=== PATIENT | female | born 1985 | race Caucasian/White ===

== ENCOUNTER 2017-10-03 04:48 | Inpatient (IN) | payer SELFPAY ==
[~2017-10-03] VITALS: Ht 149.9 cm; Wt 83.5 kg
[2017-10-03] MEDS: LACTATED RINGERS 1,000 ML IV SCH ×2 (05:52→06:53)
[2017-10-03] MEDS ORDERED: FERR325E14 PO (06:27)
[2017-10-03] MEDS ORDERED: PREN-546 PO (06:27)
--- NOTE | 2017-10-03 06:30 | NUR ---
PATIENT HAS BEEN SCREENED AND CATEGORIZED LOW NUTRITION RISK. PATIENT WILL BE SEEN WITHIN 7 DAYS OF ADMISSION. 10/09/17 LISA HUTSON MS, RDN
[2017-10-03 06:32] VITALS: BP 115/69
[2017-10-03 06:46] LABS: BASOPHILS # (AUTO) 0.2 K/uL (0.00-0.22); BASOPHILS % (AUTO) 1.4 % (0.0-2.0); EOSINOPHILS # (AUTO) 0.1 K/uL (0-0.4); EOSINOPHILS % (AUTO) 0.6 % (0.0-4.0); HEMATOCRIT 33.8 % (36-48); HEMOGLOBIN 11.2 g/dL (12.0-16.0); LYMPHOCYTES # (AUTO) 2.2 K/uL (2.5-16.5); LYMPHOCYTES % (AUTO) 17.9 % (20.5-51.1); MEAN CORPUSCULAR HEMOGLOBIN 29 pg (27-31); MEAN CORPUSCULAR HGB CONC 33 g/dL (33-37); MEAN CORPUSCULAR VOLUME 88 fL (80-94); MONOCYTES # (AUTO) 0.9 K/uL (0.8-1.0); MONOCYTES % (AUTO) 7.4 % (1.7-9.3); NEUTROPHILS % (AUTO) 72.7 % (42.2-75.2); PLATELET COUNT (AUTO) 305 K/uL (140-450); RED BLOOD CELL COUNT(AUTO) 3.86 MIL/uL (4.20-5.40); RED CELL DISTRIBUTION WIDTH 14.3 % (11.6-13.7); WHITE BLOOD COUNT (AUTO) 12.4 K/uL (4.8-10.8)
[2017-10-03] MEDS ORDERED: CLINDAMYCIN 900 MG in DEXTROSE 5% 100 ML IV ONE (07:00)
[2017-10-03] MEDS ORDERED: OXYTOCIN 10 UNITS/ML VIAL ONE (07:10)
[2017-10-03] MEDS ORDERED: diphenhydrAMINE 50 MG/ML VIAL ONE (07:17)
[2017-10-03] MEDS ORDERED: OXYTOCIN 20 UNITS/LR PREMIX 1,000 ML IV ONE (07:17)
[2017-10-03] MEDS ORDERED: ePHEDrine 50 MG/ML VIAL ONE (07:20)
[2017-10-03] MEDS ORDERED: CLINDAMYCIN 900 MG/6 ML VIAL IV ONE ×2 (07:20→07:27)
[2017-10-03] MEDS ORDERED: fentaNYL 0.05 MG/ML VIAL ONE (07:30)
[2017-10-03] MEDS ORDERED: MORPHINE PRES FREE 10 MG/10 ML AMP IV ONE (07:30)
[2017-10-03 07:42] LABS: BILIRUBIN,URINE NEGATIVE (NEGATIVE); BLOOD, URINE NEGATIVE (NEGATIVE); COLOR,URINE YELLOW (YELLOW); LEUKOCYTE ESTERASE ,URINE NEGATIVE (NEGATIVE); NITRITE, URINE NEGATIVE (NEGATIVE); UGLUCOSE NEGATIVE (NEGATIVE)
[2017-10-03] MEDS ORDERED: NALOXONE 0.4 MG/ML VIAL IVP PRN ×3 (07:55)
[2017-10-03] MEDS ORDERED: diphenhydrAMINE 50 MG/ML VIAL IVP PRN (07:55)
[2017-10-03] MEDS ORDERED: NALBUPHINE 10 MG/ML AMP IVP PRN (07:55)
[2017-10-03] MEDS ORDERED: ONDANSETRON 4 MG/2 ML VIAL IVP PRN ×2 (07:55)
[2017-10-03] MEDS ORDERED: KETOROLAC 60 MG/2 ML VIAL IM PRN (07:55)
[2017-10-03] MEDS ORDERED: MEASLES, MUMPS, AND RUBELLA 1 VIAL SQVAC PRN (08:10)
[2017-10-03] MEDS ORDERED: SIMETHICONE 80 MG TAB.CHEW PO PRN (08:10)
[2017-10-03] MEDS ORDERED: oxyCODONE/APAP 5/325 MG 1 TAB TAB PO PRN (08:10)
[2017-10-03] MEDS ORDERED: METHYLERGONOVINE 0.2 MG/ML AMP IM PRN (08:10)
[2017-10-03] MEDS ORDERED: TEMAZEPAM 15 MG CAP PO PRN (08:10)
[2017-10-03] MEDS ORDERED: IBUPROFEN 800 MG TAB PO PRN (08:10)
[2017-10-03] MEDS ORDERED: TRIMETHOBENZAMIDE 200 MG/2 ML SYR IM PRN (08:10)
[2017-10-03] MEDS ORDERED: ONDANSETRON 4 MG/2 ML VIAL ONE (08:21)
[2017-10-03 08:29] LABS: APPEARANCE,URINE HAZY (CLEAR); RBC,URINE 0-5 (RARE) /HPF (0-5); WBC,URINE 0-5 (RARE) /HPF (0-5)
[2017-10-03] MEDS: OXYTOCIN 20 UNITS in LACTATED RINGERS 1,000 ML IV SCH ×2 (15:28→23:23)
--- NOTE | 2017-10-03 15:55 | NUR ---
TOLERATED INCENTIVE SPIROMETRY THERAPY WELL WITHOUT ADVERSE REACTIONS NOTED ENCOURAGED PATIENT WITH ACKNOWLEDGEMENT TO USE EVERY 1-2 HOURS WHILE AWAKE
[2017-10-03] MEDS ORDERED: DOCUSATE SOD/SENNA 50/8.6 MG 1 TAB PO SCH (21:00)
[2017-10-04] MEDS ORDERED: OXYTOCIN 20 UNITS/LR PREMIX 1,000 ML IV ONE (06:30)
[2017-10-04] MEDS: OXYTOCIN 20 UNITS in LACTATED RINGERS 1,000 ML IV SCH (06:38)
[2017-10-04 06:45] LABS: BASOPHILS # (AUTO) 0.1 K/uL (0.00-0.22); BASOPHILS % (AUTO) 0.6 % (0.0-2.0); EOSINOPHILS # (AUTO) 0.1 K/uL (0-0.4); EOSINOPHILS % (AUTO) 0.6 % (0.0-4.0); HEMATOCRIT 30.8 % (36-48); HEMOGLOBIN 10.8 g/dL (12.0-16.0); LYMPHOCYTES % (AUTO) 13.7 % (20.5-51.1); MEAN CORPUSCULAR HEMOGLOBIN 31 pg (27-31); MEAN CORPUSCULAR HGB CONC 35 g/dL (33-37); MEAN CORPUSCULAR VOLUME 89 fL (80-94); MONOCYTES % (AUTO) 6.9 % (1.7-9.3); NEUTROPHILS # (AUTO) 11.2 K/uL (1.8-7.7); NEUTROPHILS % (AUTO) 78.2 % (42.2-75.2); PLATELET COUNT (AUTO) 296 K/uL (140-450); RED BLOOD CELL COUNT(AUTO) 3.45 MIL/uL (4.20-5.40); RED CELL DISTRIBUTION WIDTH 14.3 % (11.6-13.7); WHITE BLOOD COUNT (AUTO) 14.4 K/uL (4.8-10.8)
[2017-10-04] MEDS: HYDROcodone/APAP 5/325 MG 1 TAB TAB PO PRN (22:03)
[2017-10-05] MEDS: HYDROcodone/APAP 5/325 MG 1 TAB TAB PO PRN (06:16)
[2017-10-05] MEDS ORDERED: IBUP-2218 PO (08:31)
[2017-10-05] MEDS ORDERED: SODIUM PHOSPHATE 118 ML ENEM RC PRN (09:50)
== END 2017-10-05 13:40 | disposition home or self-care (01) | DRG 766 ==
LOC: MLD 04:48 → MFCC 07:30
PROVIDERS: ADMIT Obstetrics & Gynecology; ATTEND Obstetrics & Gynecology
PROC: 10D00Z1 Extraction of Products of Conception, Low, Open Approach (ICD-10-PCS; principal; 2017-10-03 07:30)
DX: O34.211 Maternal care for low transverse scar from previous cesarean delivery (principal); Z37.0 Single live birth; Z3A.39 39 weeks gestation of pregnancy
CPT/HCPCS: 36415; 81001; 85025; 86592; 86870; 86886; 86900; 86901; 87081; J1200; J2270; J2405; J2590; J3010; J3490; J7060; J7120